=== PATIENT | female | born 1945 | race Caucasian/White ===

== ENCOUNTER 2017-12-22 01:21 | Emergency (ER) | payer MEDICARE, OTHER ==
[2017-12-22 01:36] VITALS: BP 116/53
[2017-12-22] MEDS ORDERED: ACETAMINOPHEN 325 MG TABLET PO ONE (03:36)
[2017-12-22] MEDS ORDERED: DIPH/PERTUSS(ACELL)/TETANUS VAC/PF 0.5 ML SYR (>=10YO) IM ONE (03:36)
--- NOTE | 2017-12-22 03:42 | ER Document Report ---
HPI - HPI Patient complains to provider of: Puncture wound Onset: Just prior to arrival Onset/Duration: Sudden Quality of pain: Achy Pain Level: 1 Context: Patient stepped on a nail while wearing tennis shoes. Patient complains of puncture wound to plantar surface of right foot. Associated Symptoms: Other - Right foot puncture wound. denies: Fever Exacerbated by: Walking Relieved by: Denies Similar symptoms previously: No Recently seen / treated by doctor: No - ROS ROS below otherwise negative: Yes Systems Reviewed and Negative: Yes All other systems reviewed and negative - CONSTITUTIONAL Constitutional: DENIES: Fever - NEURO Neurology: DENIES: Weakness - MUSCULOSKELETAL Musculoskeletal: REPORTS: Extremity pain - DERM Skin Color: Normal Skin Problems: Puncture Wound Past Medical History - General Information source: Patient - Social History Smoking Status: Never Smoker Frequency of alcohol use: None Drug Abuse: None Lives with: Family Family History: Reviewed & Not Pertinent - Past Medical History Cardiac Medical History: Reports: Hx Hypercholesterolemia, Hx Hypertension Endocrine Medical History: Reports: Hx Diabetes Mellitus Type 2, Hx Hypothyroidism Musculoskeltal Medical History: Reports Hx Fibromyalgia Past Surgical History: Reports: Hx Cardiac Catheterization - Stents Vertical Provider Document - CONSTITUTIONAL Agree With Documented VS: Yes Exam Limitations: No Limitations General Appearance: WD/WN, No Apparent Distress - INFECTION CONTROL TRAVEL OUTSIDE OF THE [place] IN LAST 30 DAYS: No - HEENT HEENT: Atraumatic, Normocephalic - NECK Neck: Normal Inspection - RESPIRATORY Respiratory: No Respiratory Distress - CARDIOVASCULAR Pulses: Normal: Dorsalis pedis - MUSCULOSKELETAL/EXTREMETIES Musculoskeletal/Extremeties: MAEW, Tender - Right foot with plantar puncture wound the forefoot area, No Edema - NEURO Level of Consciousness: Awake, Alert, Appropriate Motor/Sensory: No Motor Deficit - DERM Notes: Plantar puncture wound to right foot Course - Re-evaluation Re-evalutation: 12/22/17 05:02 After foot was soaked in warm soapy water, wound was probed and reevaluated, no obvious foreign body. Consulted with Dr. Bro regarding patient presentation. Reviewed patient's history, recommends placing patient on Cipro 750 mg twice a day. Patient denies any history of any renal failure or renal insufficiency. 12/22/17 06:41 - Vital Signs Vital signs: Temp Pulse Resp BP Pulse Ox 97.7 F 71 16 116/53 L 95 12/22/17 01:34 12/22/17 01:34 12/22/17 01:34 12/22/17 01:34 12/22/17 01:34 - Diagnostic Test Radiology reviewed: Reports reviewed Discharge - Discharge Clinical Impression: Puncture wound of plantar aspect of foot Qualifiers: Encounter type: initial encounter Laterality: right Qualified Code(s): S91.331A - Puncture wound without foreign body, right foot, initial encounter Condition: Stable Disposition: HOME, SELF-CARE Instructions: Ciprofloxacin (OM), Puncture Wound (OM), Tetanus Immunization Given (OM) Additional Instructions: Return immediately for any new or worsening symptoms Followup with your primary care provider, call tomorrow to make a followup appointment Look at foot multiple times each day, monitor for any redness, swelling, purulent drainage or fever Follow-up immediately for any worsening of symptoms Prescriptions: Ciprofloxacin HCl [Cipro 750 mg Tablet] 750 mg PO BID #10 tablet Referrals: [facility] [Provider Group] - Follow up as needed
--- NOTE | 2017-12-22 04:28 | RADIOLOGY REPORT (SQ) ---
EXAM DESCRIPTION: FOOT RIGHT COMPLETE CLINICAL HISTORY: 72 years, Female, plantar PW COMPARISON: None. NUMBER OF VIEWS: 3 LIMITATIONS: None. Findings: No radiopaque foreign body. Minimal Achilles fragmented enthesophyte. Minimal ossicular developmental calcification medial to the right fifth metatarsal head. Bones, joints, and soft tissues of FOOT RIGHT appear otherwise intact. IMPRESSION: No acute findings.
[2017-12-22] MEDS ORDERED: CIPROFLOXACIN HCL 750 MG TABLET PO ONE (05:02)
== END 2017-12-22 05:42 | disposition home or self-care (01) ==
LOC: ER 01:21
DX: S91.331A Puncture wound without foreign body, right foot, initial encounter (principal); W45.0XXA Nail entering through skin, initial encounter; I10 Essential (primary) hypertension; E11.9 Type 2 diabetes mellitus without complications
CPT/HCPCS: 99283; 90471; 73630; 90715; A9270 ×2; J3490